=== PATIENT | female | born 1985 | race African-American/Black ===

== ENCOUNTER 2017-08-22 16:29 | Emergency (ER) | payer OTHER ==
[~2017-08-22] VITALS: Ht 154.9 cm; Wt 77.1 kg
[2017-08-22 16:31] VITALS: Ht 154.9 cm; Wt 77.1 kg
[2017-08-22 19:08] LABS: BASOPHIL % 0.5 % (0-2); PLATELET COUNT 267 x10^3mcL (130-400); RED CELL DISTRIBUTION WIDTH 13.1 % (11.5-14.5)
[2017-08-22 19:17] LABS: CALCIUM 8.7 mg/dL (8.5-10.1); CARBON DIOXIDE 27.5 mmol/L (21-32); CHLORIDE SERUM 102 mmol/L (98-107); CREATININE SERUM 0.8 mg/dL (0.6-1.0); GFR1 > 60 mL/min; GLUCOSE SERUM 112 mg/dL (74-106); POTASSIUM SERUM 3.6 mmol/L (3.5-5.1); SODIUM SERUM 138 mmol/L (136-145)
[2017-08-22 19:56] VITALS: BP 178/104
== END 2017-08-22 19:56 | disposition home or self-care (01) ==
LOC: ED 16:29
PROVIDERS: Emergency Medicine
DX: M25.572 Pain in left ankle and joints of left foot (principal); R03.0 Elevated blood-pressure reading, without diagnosis of hypertension
CPT/HCPCS: 36415; J1885; Q0092

== ENCOUNTER 2018-04-09 09:09 | Emergency (ER) | payer OTHER ==
[~2018-04-09] VITALS: Ht 154.9 cm; Wt 77.1 kg
[2018-04-09 09:15] VITALS: Ht 154.9 cm; Wt 77.1 kg
[2018-04-09 10:45] LABS: BASOPHIL % 0.2 % (0-2); PLATELET COUNT 291 x10^3mcL (130-400); RED CELL DISTRIBUTION WIDTH 13.4 % (11.5-14.5)
[2018-04-09 11:55] VITALS: BP 162/106
== END 2018-04-09 11:55 | disposition home or self-care (01) ==
LOC: ED 09:09
PROVIDERS: Emergency Medicine
DX: N91.2 Amenorrhea, unspecified (principal); J45.909 Unspecified asthma, uncomplicated
CPT/HCPCS: 36415

== ENCOUNTER 2018-04-21 12:11 | Emergency (ER) | payer OTHER ==
[~2018-04-21] VITALS: Ht 154.9 cm; Wt 77.1 kg
[2018-04-21 12:16] VITALS: Ht 154.9 cm; Wt 77.1 kg
[2018-04-21 13:18] LABS: BASOPHIL % 0.6 % (0-2); PLATELET COUNT 316 x10^3mcL (130-400); RED CELL DISTRIBUTION WIDTH 12.2 % (11.5-14.5)
[2018-04-21 14:00] LABS: CALCIUM 8.7 mg/dL (8.5-10.1); CARBON DIOXIDE 26.9 mmol/L (21-32); CHLORIDE SERUM 102 mmol/L (98-107); CREATININE SERUM 0.7 mg/dL (0.6-1.0); GFR1 > 60 mL/min; GLUCOSE SERUM 100 mg/dL (74-106); POTASSIUM SERUM 3.4 mmol/L (3.5-5.1); SODIUM SERUM 137 mmol/L (136-145)
[2018-04-21 14:05] LABS: ALBUMIN 3.6 g/dL (3.4-5.0); ALKALINE PHOSPHATASE 80 U/L (46-116); ALT/SGPT 35 U/L (14-59); AST/SGOT 21 U/L (15-37); BILIRUBIN TOTAL 0.3 mg/dL (0.20-1.00)
[2018-04-21 14:06] LABS: TOTAL PROTEIN, SERUM 8.4 g/dL (6.4-8.2)
[2018-04-21 14:35] VITALS: BP 208/106
== END 2018-04-21 14:35 | disposition home or self-care (01) ==
LOC: ED 12:11
PROVIDERS: Emergency Medicine
DX: B02.8 Zoster with other complications (principal); R03.0 Elevated blood-pressure reading, without diagnosis of hypertension; J45.909 Unspecified asthma, uncomplicated
CPT/HCPCS: 36415

== ENCOUNTER 2018-06-25 10:34 | Emergency (ER) | payer OTHER ==
[~2018-06-25] VITALS: Ht 154.9 cm; Wt 78.0 kg
[2018-06-25 10:40] VITALS: BP 137/74; Ht 154.9 cm; Wt 78.0 kg
== END 2018-06-25 11:41 | disposition home or self-care (01) ==
LOC: ED 10:34
DX: J45.901 Unspecified asthma with (acute) exacerbation (principal)
CPT/HCPCS: J7512; J7613

== ENCOUNTER 2019-01-04 20:28 | Emergency (ER) | payer OTHER ==
[~2019-01-04] VITALS: Ht 154.9 cm; Wt 77.6 kg
[2019-01-04 20:51] VITALS: Ht 154.9 cm; Wt 77.6 kg
[2019-01-04 21:40] LABS: BASOPHIL % 0.4 % (0-2); PLATELET COUNT 253 x10^3mcL (130-400); RED CELL DISTRIBUTION WIDTH 13.2 % (11.5-14.5)
[2019-01-04 21:42] LABS: UA SPECIFIC GRAVITY 1.025 (1.005-1.035); microscopic required? YES; urine erythrocyte TRACE (NEGATIVE)
[2019-01-05 03:18] VITALS: BP 146/76
== END 2019-01-05 03:18 | disposition short-term general hospital (02) ==
LOC: ED 20:28
PROVIDERS: Emergency Medicine
DX: O99.611 Diseases of the digestive system complicating pregnancy, first trimester (principal); O13.1 Gestational [pregnancy-induced] hypertension without significant proteinuria, first trimester; K57.92 Diverticulitis of intestine, part unspecified, without perforation or abscess without bleeding; Z3A.01 Less than 8 weeks gestation of pregnancy
CPT/HCPCS: J0360; J0696; J1200; J1885; J2405; J2765; J7030; Q0162

== ENCOUNTER 2019-05-17 10:39 | Emergency (ER) | payer OTHER ==
[~2019-05-17] VITALS: Ht 154.9 cm; Wt 78.9 kg
[2019-05-17 10:44] VITALS: Ht 154.9 cm; Wt 78.9 kg
[2019-05-17 13:08] VITALS: BP 148/70
== END 2019-05-17 13:08 | disposition home or self-care (01) ==
LOC: ED 10:39
DX: S50.12XA Contusion of left forearm, initial encounter (principal); S09.8XXA Other specified injuries of head, initial encounter; J45.909 Unspecified asthma, uncomplicated; I10 Essential (primary) hypertension; Z91.013 Allergy to seafood; Y04.8XXA Assault by other bodily force, initial encounter; Y93.89 Activity, other specified; Y92.89 Other specified places as the place of occurrence of the external cause; Y99.8 Other external cause status

== ENCOUNTER 2019-08-20 17:14 | Emergency (ER) | payer SELFPAY ==
[~2019-08-20] VITALS: Ht 162.6 cm; Wt 80.7 kg
[2019-08-20 17:27] VITALS: BP 154/100; Ht 162.6 cm; Wt 80.7 kg
== END 2019-08-20 23:17 | disposition left against medical advice (07) ==
LOC: ED 17:14
DX: J98.01 Acute bronchospasm (principal)
CPT/HCPCS: 87491; 87591

== ENCOUNTER 2019-08-22 13:38 | Emergency (ER) | payer MEDICAID ==
[~2019-08-22] VITALS: Ht 154.9 cm; Wt 79.8 kg
[2019-08-22 13:43] VITALS: Ht 154.9 cm; Wt 79.8 kg
[2019-08-22 15:28] VITALS: BP 174/100
== END 2019-08-22 15:52 | disposition home or self-care (01) ==
LOC: ED 13:38
DX: J45.909 Unspecified asthma, uncomplicated (principal); R03.0 Elevated blood-pressure reading, without diagnosis of hypertension; I10 Essential (primary) hypertension; Z91.013 Allergy to seafood
CPT/HCPCS: J7620

== ENCOUNTER 2019-09-01 13:30 | Emergency (ER) | payer OTHER ==
[~2019-09-01] VITALS: Ht 154.9 cm; Wt 78.9 kg
[2019-09-01 13:37] VITALS: BP 196/123; Ht 154.9 cm; Wt 78.9 kg
== END 2019-09-01 16:16 | disposition home or self-care (01) ==
LOC: ED 13:30
DX: S49.91XA Unspecified injury of right shoulder and upper arm, initial encounter (principal); S59.901A Unspecified injury of right elbow, initial encounter; J45.909 Unspecified asthma, uncomplicated; Z91.013 Allergy to seafood; W17.89XA Other fall from one level to another, initial encounter; Y93.89 Activity, other specified; Y92.89 Other specified places as the place of occurrence of the external cause; Y99.8 Other external cause status